=== PATIENT | female | born 1940 | race Caucasian/White ===

== ENCOUNTER 2024-12-10 06:11 | Day surgery (SDC) | payer OTHER, MEDICAID ==
[~2024-12-10] VITALS: Ht 160 cm; Wt 74.9 kg
[~2024-12-10 06:11] MED LIST: FentaNYL CITRATE PF 100 MCG/2 ML VIAL ONE; KETOROLAC TROMETHAMINE 0.5% 5 ML OPHTHALMIC SOLUTION ONE; MIDAZOLAM HCL 2 MG/2 ML VIAL ONE; MOXIFLOXACIN HCL 0.5% 3 ML OPHTHALMIC SOLUTION ONE; PHENYLEPHRINE HCL 2.5% 2 ML OPHTHALMIC SOLUTION ONE; RINGERS SOLUTION,LACTATED 500 ML IV ONE; TROPICAMIDE 1% 2 ML OPHTHALMIC SOLUTION ONE
[2024-12-10] MEDS: PHENYLEPHRINE HCL 2.5% 2 ML OPHTHALMIC SOLUTION OD SCH (06:53)
[2024-12-10] MEDS: MOXIFLOXACIN HCL 0.5% 3 ML OPHTHALMIC SOLUTION OD SCH (06:53)
[2024-12-10] MEDS: KETOROLAC TROMETHAMINE 0.5% 5 ML OPHTHALMIC SOLUTION OD SCH (06:53)
[2024-12-10] MEDS: TROPICAMIDE 1% 2 ML OPHTHALMIC SOLUTION OD SCH (06:59)
[2024-12-10 07:05] LABS: GLUCOMETER DEV NAME(LOC) SDS.; GLUCOSE,POINT OF CARE 145 MG/DL (70-110)
[2024-12-10] MEDS: TETRACAINE HCL/PF 0.5% 4 ML OPHTHALMIC SOLUTION ONE (07:57)
[2024-12-10] MEDS ORDERED: TETRACAINE HCL/PF 0.5% 4 ML OPHTHALMIC SOLUTION OD ONE (08:00)
[2024-12-10] MEDS: BALANCED SALT 15 ML OPHTHALMIC IRRIG.SOLN ONE (08:06)
[2024-12-10] MEDS: LIDOCAINE/PF 1% 2 ML VIAL ONE (08:07)
[2024-12-10] MEDS: EPINEPHrine 1:1,000 [1 MG/ML] VIAL ONE (08:07)
[2024-12-10] MEDS: POVIDONE-IODINE 5% 30 ML OPHTHALMIC SOLUTION ONE (08:07)
[2024-12-10] MEDS ORDERED: FERR325T27 PO (08:38)
[2024-12-10] MEDS ORDERED: EMPA25TA3 PO (08:38)
[2024-12-10] MEDS ORDERED: ATOR20TA PO (08:38)
[2024-12-10] MEDS ORDERED: TOLT1TAB13 PO (08:38)
[2024-12-10] MEDS ORDERED: SENN-395 PO (08:38)
[2024-12-10] MEDS ORDERED: LOSA-382 PO (08:38)
[2024-12-10] MEDS ORDERED: GLIP5TAB16 PO (08:38)
[2024-12-10] MEDS ORDERED: OMEP-148 PO (08:38)
[2024-12-10] MEDS ORDERED: AMLO2.5T96 PO (08:38)
[2024-12-10] MEDS ORDERED: MIRT-89 PO (08:38)
[2024-12-10] MEDS ORDERED: SUVO10TA PO (08:38)
[2024-12-10] MEDS ORDERED: LINA5TAB PO (08:38)
[2024-12-10] MEDS: RINGERS SOLUTION,LACTATED 500 ML IV ONE (08:43)
== END 2024-12-10 09:00 | disposition still patient (30) ==
LOC: SURGERY 06:11
PROVIDERS: ATTEND Ophthalmology
DX: E11.36 Type 2 diabetes mellitus with diabetic cataract (principal); H25.11 Age-related nuclear cataract, right eye; I10 Essential (primary) hypertension; Z88.2 Allergy status to sulfonamides; Z98.42 Cataract extraction status, left eye; Z90.710 Acquired absence of both cervix and uterus; Z79.899 Other long term (current) drug therapy
CPT/HCPCS: 66984; 82962; 93005; J0171; J3010; J3490; J2250; J7120; V2632